=== PATIENT | female | born 1960 | race African-American/Black ===

== ENCOUNTER 2023-05-01 09:45 | Inpatient (IN) | payer OTHER, MEDICAID ==
[2023-05-01 10:34] VITALS: BMI 30.4
[2023-05-01] MEDS ORDERED: Ondansetron ODT 4 MG TAB PO PRN (10:42)
[2023-05-01] MEDS ORDERED: Ondansetron PF 4 MG/2 ML Vial IVP PRN (10:42)
[2023-05-01] MEDS ORDERED: Acetaminophen 650 MG Suppository PR PRN (10:42)
[2023-05-01] MEDS ORDERED: Acetaminophen 325 MG TAB PO PRN (10:42)
[2023-05-01] MEDS ORDERED: Morphine 2 MG/ML VIAL SLOW IVP PRN (10:42)
[2023-05-01] MEDS ORDERED: Senokot S 8.6-50 MG TAB PO PRN (10:55)
[2023-05-01] MEDS: Morphine 4 MG/ML VIAL SLOW IVP PRN (11:31)
[2023-05-01] MEDS: Pregabalin 50 MG CAP PO SCH ×2 (13:38→20:49)
[2023-05-01] MEDS: Sacubitril 49 MG/Valsartan 51 MG TABLET PO SCH ×2 (13:38→20:51)
[2023-05-01] MEDS: Apixaban 5 MG TAB PO SCH ×2 (13:39→20:50)
[2023-05-01] MEDS: Aspirin 81 mg Enteric Coated Tablet PO SCH (13:39)
[2023-05-01] MEDS: Sodium Chloride 0.9% 1,000 ML IV SCH (13:53)
[2023-05-01] MEDS: Digoxin 0.5 MG/2 ML AMP SLOW IVP SCH ×2 (16:03→18:30)
[2023-05-02] MEDS: Metoprolol Tartrate 5 MG (5 mL) VIAL IVP SCH (03:29)
[2023-05-02] MEDS: Digoxin 0.5 MG/2 ML AMP SLOW IVP SCH (03:29)
[2023-05-02 05:05] LABS: #Eosinphils 0.2 10x3/uL (0.0-0.5); #Monocytes 0.6 10x3/uL (0.0-1.1); #Neutrophils 3.8 10x3/uL (1.5-8.4); %Basophils 0.4 % (0.0-2.0); %Eosinophils 3.1 % (0.0-6.0); %Lymphocytes 34.5 % (18.0-47.0); %Monocytes 8.6 % (0.0-10.0); %Neutrophils 53.1 % (40.0-75.0); Hematocrit 28.2 % (34.9-44.5); Hemoglobin 8.7 g/dL (12.0-15.5); Mean Corpuscular HGB CONC 30.9 g/dL (32.0-36.0); Mean Corpuscular Volume 97.2 fl (81.6-98.3); Platelet Count 326 10x3/uL (150-450); RBC Distribution Width 13.2 % (11.5-14.5); White Blood Cell (WBC) Count 7.1 10x3/uL (3.5-10.5)
[2023-05-02 05:35] LABS: Magnesium 1.6 mg/dL (1.6-2.6); Phosphorus 4.1 mg/dL (2.3-4.7)
[2023-05-02] MEDS: Aspirin 81 mg Enteric Coated Tablet PO SCH (06:56)
[2023-05-02] MEDS: Metoprolol Tartrate 25 MG TAB PO SCH (06:56)
[2023-05-02] MEDS ORDERED: Enoxaparin 40 MG (0.4 mL) SYRINGE SC SCH (09:00)
[2023-05-02] MEDS: Amiodarone 200 MG TAB PO SCH ×2 (11:05→21:30)
[2023-05-02] MEDS: Atorvastatin Calcium 40 MG TAB PO SCH (21:29)
[2023-05-03 05:07] LABS: #Eosinphils 0.3 10x3/uL (0.0-0.5); #Monocytes 0.6 10x3/uL (0.0-1.1); #Neutrophils 4.5 10x3/uL (1.5-8.4); %Basophils 0.4 % (0.0-2.0); %Eosinophils 3.6 % (0.0-6.0); %Lymphocytes 28.8 % (18.0-47.0); %Monocytes 7.5 % (0.0-10.0); %Neutrophils 59.4 % (40.0-75.0); Hemoglobin 8.5 g/dL (12.0-15.5); Mean Corpuscular HGB CONC 31.5 g/dL (32.0-36.0); Mean Corpuscular Hemoglobin 30.2 pg (27.0-33.0); Mean Corpuscular Volume 96.1 fl (81.6-98.3); Mean Platelet Volume 9.8 fl (7.4-10.4); Platelet Count 303 10x3/uL (150-450); RBC Distribution Width 13.1 % (11.5-14.5); Red Blood Cell (RBC) Count 2.81 10x6/uL (3.90-5.03); White Blood Cell (WBC) Count 7.5 10x3/uL (3.5-10.5)
[2023-05-03 05:16] LABS: Anion Gap 11 mmol/L (10-20); BUN (Urea Nitrogen) 25 mg/dL (9.8-20.1); Calc. Creatinine Clearance 84 mL/min (70-130); Calcium 9.9 mg/dL (7.8-10.44); Carbon Dioxide 22 mmol/L (23-31); Chloride 109 mmol/L (98-107); Estimated GFR 71; Glucose 80 mg/dL (80-115); Potassium 4.7 mmol/L (3.5-5.1); Sodium 137 mmol/L (136-145)
[2023-05-03] MEDS ORDERED: Magnesium Sulfate 4 GM in Sodium Chloride 0.9% 250 ML 250 ML IVPB SCH (09:45)
[2023-05-03] MEDS: Magnesium 2 GM/50 ML(in water) 2 GM in Premix 1 BAG IVPB SCH (10:04)
[2023-05-04 17:30] VITALS: BP 123/78; TEMP 98.5
== END 2023-05-04 17:30 | disposition swing bed (61) | DRG 309 ==
LOC: CSHTELE 09:45 → INTOOBSV 09:45 → OBSVTOIN 05-03 13:50
PROVIDERS: ADMIT Family Medicine; ATTEND Internal Medicine
PROC: 5A2204Z Restoration of Cardiac Rhythm, Single (ICD-10-PCS; principal; 2023-05-03)
DX: I48.0 Paroxysmal atrial fibrillation (principal); I13.0 Hypertensive heart and chronic kidney disease with heart failure and stage 1 through stage 4 chronic kidney disease, or unspecified chronic kidney disease; I50.22 Chronic systolic (congestive) heart failure; I48.92 Unspecified atrial flutter; N18.30 Chronic kidney disease, stage 3 unspecified; I73.9 Peripheral vascular disease, unspecified; F17.210 Nicotine dependence, cigarettes, uncomplicated; D63.1 Anemia in chronic kidney disease; E78.5 Hyperlipidemia, unspecified; Z88.0 Allergy status to penicillin; Z79.899 Other long term (current) drug therapy; Z79.01 Long term (current) use of anticoagulants; Z98.890 Other specified postprocedural states; Z90.710 Acquired absence of both cervix and uterus; Z89.511 Acquired absence of right leg below knee
CPT/HCPCS: 36415; 80048; 83735; 84100; 84443; 85025; 92960; 93005; 93010; 93306; 94760; 94762; 96374; 96375; 96376; 97139; G0378; J1160; J2270; J3475